=== PATIENT | male | born 1950 | race Caucasian/White ===

== ENCOUNTER → 2016-08-31 | Outpatient (CLI) | payer MEDICARE, BC ==
[2016-08-31 11:17] LABS: CHLORIDE,CL 107 mmol/L (98-110); SODIUM,NA 143 mmol/L (136-146)
== END | disposition home or self-care (01) ==
LOC: MW.CHFP 10:11
PROVIDERS: ATTEND Family Medicine
DX: M53.9 Dorsopathy, unspecified (principal); M43.17 Spondylolisthesis, lumbosacral region; Z85.46 Personal history of malignant neoplasm of prostate; Z90.79 Acquired absence of other genital organ(s)
CPT/HCPCS: 36415; 80048; G0463

== ENCOUNTER → 2016-11-19 | Outpatient (CLI) | payer MEDICARE, BC | LOC: MW.CHPOD 08:00 | PROVIDERS: ATTEND Podiatrist Foot & Ankle Surgery | DX: M21.40 Flat foot [pes planus] (acquired), unspecified foot (principal); L84 Corns and callosities; M79.673 Pain in unspecified foot; M20.41 Other hammer toe(s) (acquired), right foot; B07.0 Plantar wart; L85.9 Epidermal thickening, unspecified; B35.1 Tinea unguium; M20.42 Other hammer toe(s) (acquired), left foot | CPT/HCPCS: 17110; 99202 ==

== ENCOUNTER → 2016-12-03 | Outpatient (CLI) | payer MEDICARE, BC | LOC: MW.CHPOD 08:00 | PROVIDERS: ATTEND Podiatrist Foot & Ankle Surgery | DX: L84 Corns and callosities (principal); M79.673 Pain in unspecified foot; L85.9 Epidermal thickening, unspecified; M77.42 Metatarsalgia, left foot | CPT/HCPCS: G0463 ==

== ENCOUNTER 2017-01-16 08:12 | Emergency (ER) | payer MEDICARE, BC ==
--- NOTE | 2017-01-16 08:41 | EDM.PDOC ---
ED HPI GENERAL MEDICAL PROBLEM - General Chief Complaint: Genitourinary Problem Stated Complaint: UTI Time Seen by Provider: 01/16/17 08:14 Source of Information: Reports: Patient History Limitations: Reports: No Limitations - History of Present Illness INITIAL COMMENTS - FREE TEXT/NARRATIVE: History of present illness: []Patient recently had surgery at [facility] to replace his bladder sphincter. Yesterday he started getting control of his bladder back of the first time but still catheterizes himself during the night. This morning he's had the feeling of needing to urinate however he catheters or goes on his own small amount passes. He denies any fevers, chills, abdominal pain, back pain, nausea or vomiting. Review of systems: As per history of present illness and below otherwise all systems reviewed and negative. Past medical history: As per history of present illness and as reviewed below otherwise noncontributory. Surgical history: As per history of present illness and as reviewed below otherwise noncontributory. Social history: No reported history of drug or alcohol abuse. Family history: As per history of present illness and as reviewed below otherwise noncontributory. Physical exam: General: Well developed, well nourished in NAD HEENT: Atraumatic, normocephalic, pupils reactive, negative for conjunctival pallor or scleral icterus, mucous membranes moist, throat clear, neck supple, nontender, trachea midline. Lungs: Clear to auscultation, breath sounds equal bilaterally, chest nontender. Heart: S1S2, regular, negative for clicks, rubs, or JVD. Abdomen: Soft, nondistended, nontender. Negative for masses or hepatosplenomegaly. Negative for costovertebral tenderness. Pelvis: Stable nontender. Genitourinary: Deferred. Rectal: Deferred. Extremities: Atraumatic, negative for cords or calf pain. Neurovascular unremarkable. Neuro: Awake, alert, oriented. Cranial nerves II through XII unremarkable. Cerebellum unremarkable. Motor and sensory unremarkable throughout. Exam nonfocal. Diagnostics: [] Therapeutics: [] Impression: [] Plan: [] Definitive disposition and diagnosis as appropriate pending reevaluation and review of above. Lower Bladder Pain Score (Numeric/FACES): 4 - Related Data Allergies Allergy/AdvReac Type Severity Reaction Status Date / Time codeine Allergy Chest Pain Verified 06/10/17 08:28 Home Meds: Home Meds Aspirin [Luis Chewable Aspirin] 81 mg PO DAILY 11/20/13 [History] fluPHENAZine HCl [fluPHENAZine] 1 mg PO DAILY 11/20/13 [History] Multivitamin [Multivitamins] 1 tab PO DAILY 11/07/15 [History] Nitroglycerin [Nitrostat] 1 tab SL ASDIRECTED PRN 11/07/15 [History] amLODIPine [Norvasc] 10 mg PO DAILY 11/07/15 [History] atorvaSTATin [Lipitor] 20 mg PO BEDTIME 11/07/15 [History] Cefadroxil [Cefadroxil] 500 mg PO BID 01/16/17 [History] Past Medical History HEENT History: Reports: Hard of Hearing Other HEENT History: has hearing aids but does not wear them Cardiovascular History: Reports: High Cholesterol, Hypertension Respiratory History: Reports: Other (See Below) Other Respiratory History: has chronic cough possible due to reflux, awaiting results from EGD. Gastrointestinal History: Reports: GERD Genitourinary History: Reports: Prostate Disorder, Renal Calculus, Other (See Below) Other Genitourinary History: urinary sphincter Neurological History: Reports: None Psychiatric History: Reports: None Endocrine/Metabolic History: Reports: Obesity/BMI 30+ Hematologic History: Reports: None Immunologic History: Reports: None Oncologic (Cancer) History: Reports: Prostate Dermatologic History: Reports: None - Past Surgical History Head Surgeries/Procedures: Reports: None GI Surgical History: Reports: Colonoscopy Musculoskeletal Surgical History: Reports: Shoulder Surgery Social & Family History - Tobacco Use Smoking Status *Q: Never Smoker Second Hand Smoke Exposure: No - Caffeine Use Caffeine Use: Reports: None - Alcohol Use Days Per Week of Alcohol Use: 0 Number of Drinks Per Day: 0 Total Drinks Per Week: 0 - Recreational Drug Use Recreational Drug Use: No Drug Use in Last 12 Months: No ED ROS GENERAL - Review of Systems Review Of Systems: See Below (See history of present illness) ED EXAM, RENAL/ - Physical Exam Exam: See Below (See history of present illness) Course - Vital Signs Last Recorded V/S: Last Vital Signs Temp 36.3 C 01/16/17 08:26 Pulse 86 01/16/17 08:26 Resp 18 01/16/17 08:26 BP 154/78 H 01/16/17 08:26 Pulse Ox 95 01/16/17 08:26 - Orders/Labs/Meds Labs: Laboratory Tests 01/16/17 Range/Units 08:35 Urine Color YELLOW Urine Appearance CLEAR Urine pH 7.0 (5.0-8.0) Ur Specific [place] 1.010 (1.001-1.035) Urine Protein NEGATIVE (NEGATIVE) mg/dL Urine Glucose (UA) NEGATIVE (NEGATIVE) mg/dL Urine Ketones NEGATIVE (NEGATIVE) mg/dL Urine Occult Blood TRACE-INTACT (NEGATIVE) Urine Nitrite NEGATIVE (NEGATIVE) Urine Bilirubin NEGATIVE (NEGATIVE) Urine Urobilinogen 0.2 (<2.0) EU/dL Ur Leukocyte Esterase NEGATIVE (NEGATIVE) Urine RBC 0-2 (0-2/HPF) Urine WBC RARE (0-5/HPF) Ur Epithelial Cells FEW (NONE-FEW) Urine Bacteria FEW (NEGATIVE) Urine Mucus LIGHT (NONE-MOD) Departure - Departure Time of Disposition: 09:03 Disposition: Home, Self-Care 01 Condition: good Clinical Impression: Cystitis - Discharge Information Forms: ED Department Discharge Additional Instructions: The following information is given to patients seen in the emergency department who are being discharged to home. This information is to outline your options for follow-up care. We provide all patients seen in our emergency department with a follow-up referral. The need for follow-up, as well as the timing and circumstances, are variable depending upon the specifics of your emergency department visit. If you don't have a primary care physician on staff, we will provide you with a referral. We always advise you to contact your personal physician following an emergency department visit to inform them of the circumstance of the visit and for follow-up with them and/or the need for any referrals to a consulting specialist. The emergency department will also refer you to a specialist when appropriate. This referral assures that you have the opportunity for follow-up care with a specialist. All of these measure are taken in an effort to provide you with optimal care, which includes your follow-up. Under all circumstances we always encourage you to contact your private physician who remains a resource for coordinating your care. When calling for follow-up care, please make the office aware that this follow-up is from your recent emergency room visit. If for any reason you are refused follow-up, please contact the [facility] Emergency Department at and asked to speak to the emergency department charge nurse. [facility] Specialty Care - Urology [address] [place] [id number]
[2017-01-16 09:22] VITALS: BP 137/79
== END 2017-01-16 09:18 | disposition home or self-care (01) ==
LOC: MW.ED 08:12
DX: N30.90 Cystitis, unspecified without hematuria (principal); I10 Essential (primary) hypertension; E78.00 Pure hypercholesterolemia, unspecified; K21.9 Gastro-esophageal reflux disease without esophagitis; Z88.5 Allergy status to narcotic agent; Z79.82 Long term (current) use of aspirin; Z79.899 Other long term (current) drug therapy; E66.9 Obesity, unspecified; Z68.30 Body mass index [BMI] 30.0-30.9, adult; Z85.46 Personal history of malignant neoplasm of prostate; Z98.890 Other specified postprocedural states
CPT/HCPCS: 81001; 99282; 99283

== ENCOUNTER 2019-02-22 14:07 | Emergency (ER) | payer MEDICARE, BC ==
[2019-02-22] MEDS ORDERED: Diphtheria,Pertussis(Acell),Tetanus Vaccine 0.5 ML Syringe IM ONE (14:13)
[2019-02-22] MEDS ORDERED: Bacitracin Oint 1 GM U/D Packet TOP ONE (14:13)
--- NOTE | 2019-02-22 14:17 | EDM.PDOC ---
ED HPI GENERAL MEDICAL PROBLEM - General Chief Complaint: Upper Extremity Injury/Pain Stated Complaint: FELL ON RIGHT WRIST Time Seen by Provider: 02/22/19 14:08 Source of Information: Reports: Patient History Limitations: Reports: No Limitations - History of Present Illness INITIAL COMMENTS - FREE TEXT/NARRATIVE: HISTORY AND PHYSICAL: Trauma Alert was called upon patienet arrival due to age/aspirin use. Dr Schmid was directly involved in this case. History of present illness: Patient is a 68-year-old male who presents to the emergency room after a ground- level fall with complaints of right wrist pain. He states that he was walking and had missed a step because he was looking over at someone across the street. He had fallen onto his right wrist and did hit the right side of his face. Denies any loss of consciousness but did bend his glasses. States he went to the eye clinic before coming here to get his glasses fixed. Noticed increased pain and swelling to the right wrist and came for evaluation. He does take a 81 mg aspirin once daily. Patient denies any fever, chills, headache, change in vision, syncope or near syncope. Denies any chest pain, back pain, shortness of breath or cough. Denies any abdominal pain, nausea, vomiting, diarrhea, constipation or dysuria. Has not noted any blood in urine or stool. Patient has been eating and drinking appropriately. Review of systems: As per history of present illness and below otherwise all systems reviewed and negative. Past medical history: As per history of present illness and as reviewed below otherwise noncontributory. Surgical history: As per history of present illness and as reviewed below otherwise noncontributory. Social history: See social history for further information Family history: As per history of present illness and as reviewed below otherwise noncontributory. Physical exam: General: Well-developed and well-nourished 68-year-old male. Alert and oriented. Nontoxic appearing and in no acute distress. HEENT: Superficial abrasion noted to the right upper eyebrow, cheek and chin - scalp and facial bones are nontender with palpation. Normocephalic, pupils equal and reactive bilaterally, negative for conjunctival pallor or scleral icterus, mucous membranes moist, TMs normal bilaterally, throat clear, neck supple, nontender, trachea midline. No drooling or trismus noted. No meningeal signs. No hot potato voice noted. Lungs: Clear to auscultation, breath sounds equal bilaterally, chest nontender. Heart: S1S2, regular rate and rhythm without overt murmur Abdomen: Soft, nondistended, nontender. Negative for masses or hepatosplenomegaly. Negative for costovertebral tenderness. Pelvis: Stable nontender. Genitourinary/Rectal: Deferred. C-spine/Back: No pinpoint vertebral tenderness upon palpation. No crepitus, step -offs or obvious deformities. Patient is ambulatory into the emergency room without difficulty or deficits. Denies any urinary or fecal incontinence. Denies any numbness, tingling or saddle paresthesia. He is able to rock up onto his heels and toes without difficulty. Skin: Superficial abrasions noted to right face and right lateral chest wall. Otherwise skin is intact, warm, dry. No lesions or rashes noted. Extremities: Pain with flexion and extension of the right wrist, soft tissue swelling noted. Strong radial pulse. Cap refill less than 3 seconds. Otherwise moves all extremities per self without difficulty or deficits. Neurovascular unremarkable. Neuro: Awake, alert, oriented. Cranial nerves II through XII unremarkable. Cerebellum unremarkable. Motor and sensory unremarkable throughout. Exam nonfocal. Notes: Due to patient being on an aspirin and/patient age a trauma alert was called upon patient arrival. Patient's main concern is his right wrist. He is agreeable to a head CT due to the abrasions and reasons stated previous. Declines labs. He states this was an accident/mechanical fall. Denies any symptoms prior or post fall. Vital signs are stable and have been reviewed by me.. EKG shows no acute findings. X-ray of the wrist shows no definite fracture or acute osseous abnormality. 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 We'll place patient in a wrist splint. Home and supportive care measures were reviewed and discussed. Voices understanding and is agreeable to plan of care. Denies any further questions or concerns at this time. Diagnostics: Head CT, Right Wrist, EKG Therapeutics: Bacitracin, Tdap, wound care, cock-up wrist splint Prescription: Tramadol (#15) Impression: Fall Abrasion, head Right wrist injury Plan: 1. Rest, ice, elevate the affected extremity. Please wear the splint as directed. 2. Tylenol and/or Ibuprofen as needed for pain management. Tramadol for moderate to severe pain. May cause drowsiness. 3. Follow up with the Orthopedic provider and/or her very care provider as we discussed. Return to the ED as needed and as discussed. Definitive disposition and diagnosis as appropriate pending reevaluation and review of above. Right Wrist Pain Score (Numeric/FACES): 2 - Related Data Allergies Allergy/AdvReac Type Severity Reaction Status Date / Time codeine Allergy Chest Pain Verified 02/22/19 14:11 Home Meds: Home Meds Aspirin [Luis Chewable Aspirin] 81 mg PO DAILY 11/20/13 [History] fluPHENAZine HCl [fluPHENAZine] 1 mg PO DAILY 11/20/13 [History] Multivitamin [Multivitamins] 1 tab PO DAILY 11/07/15 [History] Nitroglycerin [Nitrostat] 1 tab SL ASDIRECTED PRN 11/07/15 [History] amLODIPine [Norvasc] 10 mg PO DAILY 11/07/15 [History] atorvaSTATin [Lipitor] 20 mg PO DAILY 11/07/15 [History] Past Medical History HEENT History: Reports: Hard of Hearing Other HEENT History: has hearing aids but does not wear them Cardiovascular History: Reports: High Cholesterol, Hypertension Respiratory History: Reports: Other (See Below) Other Respiratory History: has chronic cough possible due to reflux, awaiting results from EGD. Gastrointestinal History: Reports: GERD Genitourinary History: Reports: Prostate Disorder, Renal Calculus, Other (See Below) Other Genitourinary History: urinary sphincter Neurological History: Reports: None Psychiatric History: Reports: None Endocrine/Metabolic History: Reports: Obesity/BMI 30+ Hematologic History: Reports: None Immunologic History: Reports: None Oncologic (Cancer) History: Reports: Prostate Dermatologic History: Reports: None - Past Surgical History Head Surgeries/Procedures: Reports: None GI Surgical History: Reports: Colonoscopy Musculoskeletal Surgical History: Reports: Shoulder Surgery Social & Family History - Family History Family Medical History: Noncontributory - Caffeine Use Caffeine Use: Reports: None Review of Systems - Review of Systems Review Of Systems: ROS reveals no pertinent complaints other than HPI. ED EXAM, GENERAL - Physical Exam Exam: See Below (See dictation) Course - Vital Signs Last Recorded V/S: Last Vital Signs Temp 97.6 F 02/22/19 14:13 Pulse 81 02/22/19 14:13 Resp 20 02/22/19 14:13 BP 129/76 02/22/19 14:13 Pulse Ox 95 02/22/19 14:13 - Orders/Labs/Meds Orders: Active Orders 24 hr Category Date Time Status EKG 12 Lead [EKG Documentation Completion] [RC] STAT Care 02/22/19 14:17 Active Vaccines to be Administered [RC] PER UNIT ROUTINE Care 02/22/19 14:13 Active Meds: Medications Discontinued Medications Generic Name Dose Route Start Last Admin Trade Name Ronald PRN Reason Stop Dose Admin Bacitracin 1 dose 02/22/19 14:13 02/22/19 14:40 Bacitracin Oint 1 Gm TOP 02/22/19 14:14 1 dose ONETIME ONE Administration Diphtheria/Tetanus/Acell Pertussis 0.5 ml 02/22/19 14:13 02/22/19 14:39 Adacel IM 02/22/19 14:14 0.5 ml .ONCE ONE Administration Departure - Departure Time of Disposition: 15:00 Disposition: Home, Self-Care 01 Clinical Impression: Fall Qualifiers: Encounter type: initial encounter Qualified Code(s): W19.XXXA - Unspecified fall, initial encounter Abrasion head Qualifiers: Encounter type: initial encounter Qualified Code(s): S00.91XA - Abrasion of unspecified part of head, initial encounter Right wrist injury Qualifiers: Encounter type: initial encounter Qualified Code(s): S69.91XA - Unspecified injury of right wrist, hand and finger(s), initial encounter - Discharge Information Instructions: Head Injury, Adult, [id number], Wrist Sprain, Adult Referrals: PCP,None [Primary Care Provider] - Forms: ED Department Discharge Additional Instructions: The following information is given to patients seen in the emergency department who are being discharged to home. This information is to outline your options for follow-up care. We provide all patients seen in our emergency department with a follow-up referral. The need for follow-up, as well as the timing and circumstances, are variable depending upon the specifics of your emergency department visit. If you don't have a primary care physician on staff, we will provide you with a referral. We always advise you to contact your personal physician following an emergency department visit to inform them of the circumstance of the visit and for follow-up with them and/or the need for any referrals to a consulting specialist. The emergency department will also refer you to a specialist when appropriate. This referral assures that you have the opportunity for follow-up care with a specialist. All of these measure are taken in an effort to provide you with optimal care, which includes your follow-up. Under all circumstances we always encourage you to contact your private physician who remains a resource for coordinating your care. When calling for follow-up care, please make the office aware that this follow-up is from your recent emergency room visit. If for any reason you are refused follow-up, please contact the [facility] Emergency Department at and asked to speak to the emergency department charge nurse. [facility] Primary Care [address] [place] [address] [id number] [address] [address] [facility] Specialty Care - Orthopedic Clinic Professional Building [address] [place] [address], [address] [place] [address] 1. Rest, ice, elevate the affected extremity. Please wear the splint as directed. 2. Tylenol and/or Ibuprofen as needed for pain management. Tramadol for moderate to severe pain. May cause drowsiness. 3. Follow up with the Orthopedic provider and/or her very care provider as we discussed. Return to the ED as needed and as discussed. - My Orders Last 24 Hours: My Active Orders 02/22/19 14:13 Vaccines to be Administered [RC] PER UNIT ROUTINE 02/22/19 14:17 EKG 12 Lead [EKG Documentation Completion] [RC] STAT - Assessment/Plan Last 24 Hours: My Active Orders 02/22/19 14:13 Vaccines to be Administered [RC] PER UNIT ROUTINE 02/22/19 14:17 EKG 12 Lead [EKG Documentation Completion] [RC] STAT
[2019-02-22 14:20] VITALS: BP 129/76
--- NOTE | 2019-02-22 14:39 | CR ---
EXAMINATION: Right wrist HISTORY: Fall COMPARISON: None TECHNIQUE: 3 views FINDINGS: There is no definite fracture identified. There is notable widening of the scapholunate interval with tilting of the scaphoid suggestive of chronic scapholunate ligament injury. Mild osteoarthritic changes are also noted within the right breast. Generalized soft tissue swelling. IMPRESSION: 1. No definite fracture or acute osseous abnormality. 2. 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
--- NOTE | 2019-02-22 14:42 | CT ---
EXAMINATION: Non contrast CT head. Coronal and sagittal reformats. HISTORY: Pain FINDINGS: No evidence of intra or extra axial hemorrhage, mass, midline shift, hydrocephalus or edema. No hypoattenuation changes in the major vascular territories to suggest acute infarct. No abnormal intracranial calcifications are detected. No evidence of substantial vascular calcifications. Paranasal sinuses and mastoid air cells are well aerated without substantial findings. Tiny right frontal osteoma. Pituitary fossa appears unremarkable. Orbits and globes are symmetric. Calvarium is intact. No evidence of skull fracture. IMPRESSION: No acute intracranial findings.
== END 2019-02-22 15:16 | disposition home or self-care (01) ==
LOC: MW.ED 14:07
DX: S69.91XA Unspecified injury of right wrist, hand and finger(s), initial encounter (principal); S00.211A Abrasion of right eyelid and periocular area, initial encounter; S00.81XA Abrasion of other part of head, initial encounter; S00.01XA Abrasion of scalp, initial encounter; S20.311A Abrasion of right front wall of thorax, initial encounter; Z23 Encounter for immunization; I10 Essential (primary) hypertension; E78.00 Pure hypercholesterolemia, unspecified; K21.9 Gastro-esophageal reflux disease without esophagitis; Z88.5 Allergy status to narcotic agent; Z79.82 Long term (current) use of aspirin; Z79.899 Other long term (current) drug therapy; W19.XXXA Unspecified fall, initial encounter
CPT/HCPCS: 70450; 70450-26; 73110-26-RT; 73110-RT; 90471; 90715; 93005; 99284-25

== ENCOUNTER 2021-07-01 06:25 | Day surgery (SDC) | payer MEDICARE, BC ==
[~2021-07-01 06:25] MED LIST: Lactated Ringers 1,000 ML IV SCH; Sodium Chloride 0.9% 10 ML Syringe FLUSH PRN; Sodium Chloride 0.9% 2.5 ML Syringe FLUSH PRN; Sodium Chloride 0.9% 20 ML SDV IV PRN
[2021-07-01] MEDS ORDERED: Lidocaine 2% 100 MG/5 ML Syringe ONE (07:22)
[2021-07-01] MEDS ORDERED: Ondansetron 4 MG/2 ML SDV ONE (07:22)
--- NOTE | 2021-07-01 07:25 | PCM.PREANE ---
Preanesthetic Assessment - Anesthesia/Transfusion/Family Hx Anesthesia History: Prior Anesthesia Without Reaction Other Type of Anesthesia Reaction Comment: Denies any known problem with anesthesia in the past Transfusion History: No Prior Transfusion(s) - Review of Systems General: No Symptoms Pulmonary: No Symptoms Cardiovascular: No Symptoms Gastrointestinal: No Symptoms Neurological: No Symptoms Other: Reports: None - Physical Assessment NPO Status Date: 07/01/21 NPO Status Time: 00:00 Vital Signs: Last Vital Signs Temp 97.3 F 07/01/21 06:41 Pulse 87 07/01/21 06:41 Resp 14 07/01/21 06:41 BP 129/85 07/01/21 06:41 Pulse Ox 96 07/01/21 06:41 Height: 6 ft 2 in Weight: 257 lb ASA Class: 2 Mental Status: Alert & Oriented x3 Airway Class: Mallampati = 2 Dentition: Reports: Normal Dentition ROM/Head Extension: Full Lungs: Clear to Auscultation, Normal Respiratory Effort Cardiovascular: Regular Rate, Regular Rhythm - Allergies Allergies/Adverse Reactions: Allergies Allergy/AdvReac Type Severity Reaction Status Date / Time codeine Allergy Chest Pain Verified 06/25/21 14:07 - Acknowledgements Anesthesia Type Planned: General Anesthesia Pt an Appropriate Candidate for the Planned Anesthesia: Yes Alternatives and Risks of Anesthesia Discussed w Pt/Guardian: Yes Pt/Guardian Understands and Agrees with Anesthesia Plan: Yes PreAnesthesia Questionnaire HEENT History: Reports: Hard of Hearing Other HEENT History: has hearing aids but does not wear them Cardiovascular History: Reports: High Cholesterol, Hypertension Respiratory History: Reports: Other (See Below) Other Respiratory History: has chronic cough possible due to reflux, awaiting results from EGD. Gastrointestinal History: Reports: GERD Genitourinary History: Reports: Prostate Disorder, Renal Calculus, Other (See Below) Other Genitourinary History: urinary sphincter Musculoskeletal History: Reports: Fracture, Osteoarthritis Other Musculoskeletal History: hx of fx arm Neurological History: Reports: None Other Neuro History: has a "nervous tic" affecting shoulders and arms- takes fluphenazine Psychiatric History: Reports: None Endocrine/Metabolic History: Reports: Obesity/BMI 30+ Hematologic History: Reports: None Immunologic History: Reports: None Oncologic (Cancer) History: Reports: Prostate Dermatologic History: Reports: None - Infectious Disease History Infectious Disease History: Reports: Chicken Pox - Past Surgical History Head Surgeries/Procedures: Reports: None GI Surgical History: Reports: Colonoscopy Male Surgical History: Reports: Vasectomy Other Male Surgeries/Procedures: Radical Prostatectomy for cancer, implantation of urinary sphincter Musculoskeletal Surgical History: Reports: Shoulder Surgery Other Musculoskeletal Surgeries/Procedures:: bilateral RTCR Dermatological Surgical History: Reports: Skin Biopsy - SUBSTANCE USE Tobacco Use Status *Q: Never Tobacco User Recreational Drug Use History: No - HOME MEDS Home Medications: Home Meds Aspirin [Luis Chewable Aspirin] 81 mg PO DAILY 11/20/13 [History] fluPHENAZine HCl [fluPHENAZine] 1 mg PO QAM 11/20/13 [History] Multivitamin [Multivitamins] 1 tab PO DAILY 11/07/15 [History] amLODIPine [Norvasc] 10 mg PO QAM 11/07/15 [History] atorvaSTATin [Lipitor] 20 mg PO BEDTIME 11/07/15 [History] Glucosamine [Glucosamine Sulfate] 500 mg PO DAILY 06/25/21 [History] - CURRENT (IN HOUSE) MEDS Current Meds: Current Medications Lactated Ringer's (Ringers, Lactated) 1,000 mls @ 125 mls/hr IV ASDIRECTED DAWIT Last Admin: 07/01/21 06:48 Dose: 125 mls/hr Documented by: Sodium Chloride (Sodium Chloride 0.9% 10 Ml Syringe) 10 ml FLUSH ASDIRECTED PRN PRN Reason: Keep Vein Open Sodium Chloride (Sodium Chloride 0.9% 2.5 Ml Syringe) 2.5 ml FLUSH ASDIRECTED PRN PRN Reason: Keep Vein Open Sodium Chloride (Sodium Chloride 0.9% 10 Ml Syringe) 10 ml FLUSH ASDIRECTED PRN PRN Reason: Keep Vein Open Sodium Chloride (Sodium Chloride 0.9% 2.5 Ml Syringe) 2.5 ml FLUSH ASDIRECTED PRN PRN Reason: Keep Vein Open Sodium Chloride (Sodium Chloride 0.9% 20 Ml Sdv) 10 ml IV ASDIRECTED PRN PRN Reason: IV Use
[2021-07-01] MEDS ORDERED: propofoL 50 ML ONE (07:26)
--- NOTE | 2021-07-01 08:39 | PCM48HPAN ---
Post Anesthesia Note - EVALUATION WITHIN 48HRS OF ANESTHETIC Patient Participated in Evaluation: Yes Respiratory Function Stable: Yes Airway Patent: Yes Cardiovascular Function Stable: Yes Hydration Status Stable: Yes Pain Control Satisfactory: Yes Nausea and Vomiting Control Satisfactory: Yes Mental Status Recovered: Yes Vital Signs: Last Vital Signs Temp 97.3 F 07/01/21 06:41 Pulse 87 07/01/21 06:41 Resp 14 07/01/21 06:41 BP 129/85 07/01/21 06:41 Pulse Ox 96 07/01/21 06:41
--- NOTE | 2021-07-01 08:39 | PCM.POSTAN ---
POST ANESTHESIA ASSESSMENT - MENTAL STATUS Mental Status: Alert, Oriented - VITAL SIGNS Vital Signs: Last Vital Signs Temp 97.3 F 07/01/21 06:41 Pulse 87 07/01/21 06:41 Resp 14 07/01/21 06:41 BP 129/85 07/01/21 06:41 Pulse Ox 96 07/01/21 06:41 - RESPIRATORY Respiratory Status: Respiratory Rate WNL, Airway Patent, O2 Saturation Stable - CARDIOVASCULAR CV Status: Pulse Rate WNL, Blood Pressure Stable - GASTROINTESTINAL GI Status: No Symptoms - POST OP HYDRATION Hydration Status: Adequate & Stable
[2021-07-01 08:58] VITALS: BP 111/59; PULSE 70
--- NOTE | 2021-07-01 09:22 | PCM.OPNOTE ---
- General Post-Op/Procedure Note Date of Surgery/Procedure: 07/01/21 Operative Procedure(s): Screening colonoscopy with polypectomy Findings: descending colon polyp, diverticulosis Pre Op Diagnosis: Screening colonoscopy Post-Op Diagnosis: Diverticulosis Anesthesia Technique: MARTHA Primary Surgeon: Ashely Figueroa Condition: Good
--- NOTE | 2021-07-01 09:30 | OR ---
SURGEON: ASHELY FIGUEROA MD DATE OF PROCEDURE: 07/01/2021 PREOPERATIVE DIAGNOSIS: Screening colonoscopy. POSTOPERATIVE DIAGNOSES: 1. Diverticulosis. 2. Descending colon polyp. PROCEDURE PERFORMED: Screening colonoscopy with polypectomy. PRIMARY SURGEON: Ashely Figueroa MD ANESTHESIA: MAC. INSTRUMENT USED: Olympus colonoscope. EXTENT OF EXAM: To the cecum. PREPARATION: Good. LIMITATIONS: None. INDICATIONS FOR EXAMINATION: The patient is a 70-year-old male who presents for a screening colonoscopy. I explained the procedure, expected perioperative course, and the risks. He verbalized understanding and wishes to proceed. PROCEDURE IN DETAIL: The patient was brought to the endoscopy suite and placed in the left lateral decubitus position. A time-out was completed verifying the patient's name, age, date of , allergies, and procedure to be performed. Monitored anesthesia care was induced and continuous oxygen was provided via face mask throughout the procedure. After adequate sedation was achieved, a digital rectal exam was performed. This exam was within normal limits. A well-lubricated colonoscope was inserted in the rectum and advanced under direct visualization to the level of the cecum. The cecum was identified by both visual and anatomic landmarks. A photograph was taken of the cecal cap. However, I was unable to retroflex the scope within the cecum due to looping of the scope more proximally. The scope was then fully withdrawn while examining the color, texture, anatomy, and integrity of mucosa from the cecum to the anal canal. The patient was noted to have diverticulosis throughout the sigmoid colon. There was a small sessile polyp in the proximal descending colon, this was removed in piecemeal fashion using cold biopsy forceps. The scope was brought into the rectum and retroflexed to allow visualization of the anal canal opening. This appeared normal and photograph was taken. The scope was straightened out and fully withdrawn. The cecum to anus time was 10 minutes. The patient tolerated the procedure well and was transferred to the PACU in stable condition. ENDOSCOPIC DIAGNOSES: Diverticulosis, descending colon polyp. RECOMMENDATION: Follow up in clinic in 2 weeks. JUAN FRANCISCO MAYER /[id number]
== END 2021-07-01 08:59 | disposition home or self-care (01) ==
LOC: MW.SDS 06:25
PROVIDERS: ATTEND Surgery
DX: Z12.11 Encounter for screening for malignant neoplasm of colon (principal); D12.4 Benign neoplasm of descending colon; K57.30 Diverticulosis of large intestine without perforation or abscess without bleeding; I10 Essential (primary) hypertension; E78.00 Pure hypercholesterolemia, unspecified; E55.9 Vitamin D deficiency, unspecified; E66.9 Obesity, unspecified; K21.9 Gastro-esophageal reflux disease without esophagitis; Z79.899 Other long term (current) drug therapy; Z88.5 Allergy status to narcotic agent; Z79.82 Long term (current) use of aspirin; Z98.890 Other specified postprocedural states; Z68.33 Body mass index [BMI] 33.0-33.9, adult
CPT/HCPCS: 45380; J2405; J2704; J7120; 00812; 99100

== ENCOUNTER 2021-09-05 14:59 | Emergency (ER) | payer MEDICARE, BC ==
[2021-09-05 17:29] VITALS: BP 127/78; PULSE 72
== END 2021-09-05 17:32 | disposition home or self-care (01) ==
LOC: MW.ED 14:59
DX: S20.212A Contusion of left front wall of thorax, initial encounter (principal); E78.00 Pure hypercholesterolemia, unspecified; I10 Essential (primary) hypertension; E66.9 Obesity, unspecified; M19.90 Unspecified osteoarthritis, unspecified site; Z68.32 Body mass index [BMI] 32.0-32.9, adult; Z88.5 Allergy status to narcotic agent; Z79.899 Other long term (current) drug therapy; Z79.82 Long term (current) use of aspirin; W01.198A Fall on same level from slipping, tripping and stumbling with subsequent striking against other object, initial encounter
CPT/HCPCS: 71101-26-LT; 71101-LT; 71101-RT; 99283

== ENCOUNTER 2023-08-10 01:02 | Emergency (ER) | payer MEDICARE, BC ==
[2023-08-10] MEDS ORDERED: Sodium Chloride 0.9% 1,000 ML IV ONE (01:14)
[2023-08-10] MEDS ORDERED: Sodium Chloride 0.9% 2.5 ML Syringe FLUSH PRN (01:14)
[2023-08-10] MEDS ORDERED: Sodium Chloride 0.9% 10 ML Syringe FLUSH PRN (01:14)
[2023-08-10 01:55] LABS: BASOPHILS ABSOLUTE AUTO 0.04 K/uL (0.00-0.20); BASOPHILS PERCENT AUTO 0.3 % (0.0-1.0); EOSINOPHILS ABSOLUTE AUTO 0.13 K/uL (0.00-0.45); HEMATOCRIT 42.4 % (42.0-52.0); HEMOGLOBIN 14.4 g/dL (14.0-18.0); IMMATURE GRAN ABSOLUTE AUTO 0.05 K/uL (0.00-0.05); IMMATURE GRAN PERCENT AUTO 0.4 % (0.0-0.4); LYMPHOCYTES PERCENT AUTO 14.1 % (24.0-44.0); MEAN CORPUSCULAR VOLUME 94.2 fL (83.0-99.0); MEAN PLATELET VOLUME 10.1 fL (9.4-12.4); MONOCYTES ABSOLUTE AUTO 0.89 K/uL (0.00-0.80); NEUTROPHILS ABSOLUTE AUTO 9.85 K/uL (1.80-7.70); NEUTROPHILS PERCENT AUTO 77.2 % (41.0-71.0); PLATELET COUNT,PLT 176 K/uL (150-400); WHITE BLOOD CELL COUNT,WBC 12.76 K/uL (3.9-11.3)
[2023-08-10] MEDS ORDERED: Iopamidol 755 MG/ML 500 ML Multipack Bottle IVPUSH ONE (02:01)
[2023-08-10 02:07] LABS: A/G RATIO 1.2 (0.9-1.6); ALBUMIN 3.6 g/dL (3.4-5.0); BILIRUBIN TOTAL 0.6 mg/dL (0.2-1.0); CALCIUM 8.6 mg/dL (8.5-10.1); CARBON DIOXIDE,CO2 27.6 mmol/L (21.0-32.0); CREATININE 0.8 mg/dL (0.8-1.3); EST CRCL DRUG DOSING (CG) 94.19 mL/min; PROTEIN TOTAL,TP 6.5 g/dL (6.4-8.2)
[2023-08-10 02:12] LABS: POTASSIUM,K 3.8 mmol/L (3.5-5.1)
[2023-08-10 03:24] LABS: CORONAVIRUS COVID-19 NAA NEGATIVE (NEGATIVE); INFLUENZA A NAA NEGATIVE (NEGATIVE); INFLUENZA B NAA NEGATIVE (NEGATIVE)
[2023-08-10] MEDS ORDERED: Ketorolac 30 MG/ML SDV IVPUSH ONE (03:50)
[2023-08-10 04:09] VITALS: BP 123/68; PULSE 73
== END 2023-08-10 04:08 | disposition home or self-care (01) ==
LOC: MW.ED 01:02
DX: R09.1 Pleurisy (principal); J06.9 Acute upper respiratory infection, unspecified; R91.1 Solitary pulmonary nodule; E66.9 Obesity, unspecified; I10 Essential (primary) hypertension; E78.00 Pure hypercholesterolemia, unspecified; Z20.822 Contact with and (suspected) exposure to COVID-19; Z79.899 Other long term (current) drug therapy; Z88.5 Allergy status to narcotic agent
CPT/HCPCS: 0240U; 36415; 71275; 80053; 83880; 84484; 85025; 85379; 93005; 99285; J3490; J7030; Q9967

== ENCOUNTER 2023-11-17 21:22 | Emergency (ER) | payer MEDICARE, BC ==
[2023-11-17 22:06] LABS: BASOPHILS ABSOLUTE AUTO 0.03 K/uL (0.00-0.20); BASOPHILS PERCENT AUTO 0.3 % (0.0-1.0); EOSINOPHILS ABSOLUTE AUTO 0.12 K/uL (0.00-0.45); EOSINOPHILS PERCENT AUTO 1.1 % (0.0-6.0); HEMATOCRIT 40.3 % (42.0-52.0); IMMATURE GRAN ABSOLUTE AUTO 0.04 K/uL (0.00-0.05); IMMATURE GRAN PERCENT AUTO 0.4 % (0.0-0.4); LYMPHOCYTES ABSOLUTE AUTO 2.09 K/uL (1.00-4.80); LYMPHOCYTES PERCENT AUTO 19.2 % (24.0-44.0); MEAN CORPUSCULAR HEMOGLOBIN 31.6 pg (28.0-32.0); MEAN CORPUSCULAR HGB CONC 34.7 g/dL (32.0-36.0); MEAN PLATELET VOLUME 10.4 fL (9.4-12.4); MONOCYTES ABSOLUTE AUTO 1.07 K/uL (0.00-0.80); MONOCYTES PERCENT AUTO 9.8 % (0.0-8.0); NEUTROPHILS ABSOLUTE AUTO 7.56 K/uL (1.80-7.70); NEUTROPHILS PERCENT AUTO 69.2 % (41.0-71.0); PLATELET COUNT,PLT 163 K/uL (150-400); RED BLOOD CELL COUNT 4.43 M/uL (4.52-5.90); WHITE BLOOD CELL COUNT,WBC 10.91 K/uL (3.9-11.3)
[2023-11-17] MEDS: Sodium Chloride 0.9% 2.5 ML Syringe FLUSH PRN (22:13)
[2023-11-17] MEDS: Sodium Chloride 0.9% 10 ML Syringe FLUSH PRN (22:15)
[2023-11-17 22:39] LABS: A/G RATIO 1.1 (0.9-1.6); ALBUMIN 3.3 g/dL (3.4-5.0); BILIRUBIN TOTAL 0.7 mg/dL (0.2-1.0); CARBON DIOXIDE,CO2 25.8 mmol/L (21.0-32.0); CREATININE 0.9 mg/dL (0.8-1.3); D-DIMER QUANTITATIVE 0.35 mg/L FEU (0.00-0.50); EST CRCL DRUG DOSING (CG) 81.38 mL/min; INR 1.02 (0.86-1.11); MAGNESIUM 2.3 mg/dL (1.8-2.4); PROTEIN TOTAL,TP 6.3 g/dL (6.4-8.2); PTT,PARTIAL THROMBOPLSTIN TIME 38.3 SEC (23.9-30.7)
[2023-11-18 01:23] VITALS: BP 140/77; PULSE 62
== END 2023-11-18 01:23 | disposition home or self-care (01) ==
LOC: MW.ED 21:22
DX: R07.9 Chest pain, unspecified (principal); E78.00 Pure hypercholesterolemia, unspecified; I10 Essential (primary) hypertension; E66.9 Obesity, unspecified; Z88.5 Allergy status to narcotic agent; Z79.899 Other long term (current) drug therapy; Z86.19 Personal history of other infectious and parasitic diseases; Z68.34 Body mass index [BMI] 34.0-34.9, adult
CPT/HCPCS: 36415; 71046; 80053; 83735; 83880; 84484; 85025; 85379; 85610; 85730; 93005; 99285; J3490; 93010; 99282